=== PATIENT | female | born 1975 | race Caucasian/White ===

== ENCOUNTER 2016-06-09 12:38 | Emergency (ER) | payer BC, OTHER ==
[~2016-06-09] VITALS: Ht 162.6 cm; Wt 79.0 kg
[~2016-06-09 12:38] MED LIST: INDERAL
[2016-06-09 12:44] VITALS: BP 135/84; PULSE 70; RESP 20; TEMP 98.3; O2SAT 100
[2016-06-09] MEDS ORDERED: SODIUM CHLOR 0.9% 1000 ML INJ 1,000 ML IV ONE (13:30)
[2016-06-09] MEDS ORDERED: METOCLOPRAMIDE INJ 10 MG in SODIUM CHLORIDE 0.9% INJ 50 ML IV ONE (13:30)
--- NOTE | 2016-06-09 13:36 | PD ---
HPI Chief Complaint: Headache Time Seen by Provider: 13:14 Travel History International Travel<30 days: No Contact w/Intl Traveler<30days: No Traveled to known affect area: No History of Present Illness HPI 40yo F with PMH of migraine presents to the ED with headache for 6 days. Headache is midline, parietal to occipital and throbbing, constant. Feels like her usual migraine headache. +Nausea and NBNB vomiting. +Photophobia. Pt also with decreased sensation in right arm for 4 days. States that this is new and she usually does not get this with her headache. Denies any trauma, fever , visual changes, chest pain, sob, abdominal pain, weakness. Pt went to urgent care today and was sent here for evaluation. PFSH Past Medical History Migraines: Yes ?: Unknown LMP: a week ago Ectopic : Yes Tubal Ligation: Yes Past Surgical History Appendectomy: Yes Cholecystectomy: Yes Social History Alcohol Use: Yes (SOCIALLY) Tobacco Use: No Substance Use: No Allergies-Medications (Allergen,Severity, Reaction): Coded Allergies: No Known Allergies (Verified , 06/09/16) Reported Meds & Prescriptions Reported Meds & Active Scripts Active Acetaminophen Extra Strength (Acetaminophen) 500 Mg Tab 500 Mg PO Q6H PRN Zofran Odt (Ondansetron Odt) 4 Mg Tab 4 Mg SL Q6HR PRN Review of Systems Except as stated in HPI: all other systems reviewed are Neg Physical Exam Narrative GENERAL: 40yo F in mild distress. SKIN: Warm and dry. HEAD: Atraumatic. Normocephalic. EYES: Pupils equal and round. EOMI. No scleral icterus. No injection or drainage. ENT: No nasal bleeding or discharge. Mucous membranes pink and moist. NECK: Trachea midline. No JVD. CARDIOVASCULAR: Regular rate and rhythm. No murmur appreciated. RESPIRATORY: No accessory muscle use. Clear to auscultation. Breath sounds equal bilaterally. GASTROINTESTINAL: Abdomen soft, non-tender, nondistended. Hepatic and splenic margins not palpable. MUSCULOSKELETAL: No obvious deformities. No clubbing. No cyanosis. No edema. NEUROLOGICAL: Awake and alert. No obvious cranial nerve deficits. Motor grossly within normal limits. Normal speech. PSYCHIATRIC: Appropriate mood and affect; insight and judgment normal. Data Data Last Documented VS Vital Signs Date Time Temp Pulse Resp B/P Pulse Ox O2 Delivery O2 Flow Rate FiO2 06/09/16 15:41 88 20 131/64 95 06/09/16 12:[address] Brain W/O Iv Contrast(Rout) (06/09/16 ) Complete Blood Count With Diff (06/09/16 13:23) Basic Metabolic Panel (Bmp) (06/09/16 13:23) Magnesium (Mg) (06/09/16 13:23) Prothrombin Time / Inr (Pt) (06/09/16 13:23) Act Partial Throm Time (Ptt) (06/09/16 13:23) Metoclopramide Inj (Reglan Inj) (06/09/16 13:30) Sodium Chlor 0.9% 1000 Ml Inj (Ns 1000 M (06/09/16 13:30) Ketorolac Inj (Toradol Inj) (06/09/16 14:45) Prochlorperazine Inj (Compazine Inj) (06/09/16 15:30) Sumatriptan Inj (Imitrex Inj) (06/09/16 15:30) Diphenhydramine Inj (Benadryl Inj) (06/09/16 15:30) Hydromorphone Pf Inj (Dilaudid Pf Inj) (06/09/16 15:30) Pantoprazole Inj (Protonix Inj) (06/09/16 16:15) Labs Laboratory Tests Test 06/09/16 06/09/16 13:50 14:45 White Blood Count 8.5 TH/MM3 Red Blood Count 4.66 MIL/MM3 Hemoglobin 14.2 GM/DL Hematocrit 41.1 % Mean Corpuscular Volume 88.3 FL Mean Corpuscular Hemoglobin 30.5 PG Mean Corpuscular Hemoglobin 34.5 % Concent Red Cell Distribution Width 12.7 % Platelet Count 264 TH/MM3 Mean Platelet Volume 8.8 FL Neutrophils (%) (Auto) 65.0 % Lymphocytes (%) (Auto) 24.7 % Monocytes (%) (Auto) 6.0 % Eosinophils (%) (Auto) 2.7 % Basophils (%) (Auto) 1.6 % Neutrophils # (Auto) 5.6 TH/MM3 Lymphocytes # (Auto) 2.1 TH/MM3 Monocytes # (Auto) 0.5 TH/MM3 Eosinophils # (Auto) 0.2 TH/MM3 Basophils # (Auto) 0.1 TH/MM3 CBC Comment DIFF FINAL Differential Comment Prothrombin Time 11.4 SEC Prothromb Time International 1.0 RATIO Ratio Activated Partial 25.1 SEC Thromboplast Time Sodium Level 141 MEQ/L Potassium Level 3.8 MEQ/L Chloride Level 106 MEQ/L Carbon Dioxide Level 27.2 MEQ/L Anion Gap 8 MEQ/L Blood Urea Nitrogen 8 MG/DL Creatinine 0.87 MG/DL Estimat Glomerular Filtration 72 ML/MIN Rate Random Glucose 79 MG/DL Calcium Level 8.4 MG/DL Magnesium Level 2.3 MG/DL MDM Medical Decision Making Medical Screen Exam Complete: Yes Emergency Medical Condition: Yes Interpretation(s) Last Impressions Head CT 06/09/16 0000 Signed Impressions: Service Date/Time: Thursday, June 09, 2016 14:06 - CONCLUSION: Negative noncontrast head CT. Sanjay Abbott MD Differential Diagnosis Migraine headache vs. SAH vs. cervical radiculopathy Narrative Course 40yo F presents to the ED with her usual migraine headache for 6 days. However, she is having decreased sensation in her right arm. She describes it as a feeling as if a turnique is on her arm and she feels decreased sensation from proximal humerus down. CT brain showed negative noncontrast head CT. Pt with right trapezius ttp and right paraspinal ttp now. Pt reevaluated after reglan, toradol and IVF NS and states headache is still there. I wanted to give her sumatriptan but pt states she cannot take that. Pt states the only thing that helps with her headache is dilaudid or demeral and phenergan. Pt reevaluated at bedside and states her headache has improved after dilaudid. Pt is now complaining of feeling of indigestion. Protonix ordered. Abdomen is soft, NT/ND. Pt is refusing a lumbar puncture to r/o SAH. Pt reevaluated at bedside and states her headache returned but she does not want lumbar puncture or any more work up at this time and just wants to go home. Pt is signing out AMA. She is requesting stronger pain medication to go home with. AMA: The risks of leaving against medical advice without further evaluation treatment were discussed with the patient. These risks include cardiac dysfunction, cardiac dysrhythmia, possible heart attack, possible stroke or . The patient indicated understanding of these risks and appeared to have the capacity to make this decision. Diagnosis Primary Impression: Migraine headache Qualified Code: G43.011 - Intractable migraine without aura and with status migrainosus Patient Instructions: General Instructions Departure Forms: Tests/Procedures Additional Instructions: Please follow up with your neurologist or return to the ED if you have worsening symptoms or change your mind. Med/Other Pt SpecificInfo: Prescription(s) given Scripts Acetaminophen (Acetaminophen Extra Strength)500 Mg Ryt295 Mg PO Q6H PRN (PAIN SCALE 1 TO 4) #20 TAB Ref 0 Prov:Norah Clement DO 06/09/16 Ondansetron Odt (Zofran Odt)4 Mg Tab4 Mg SL Q6HR PRN (Nausea/Vomiting) #7 TAB Ref 0 Prov:Norah Clement DO 06/09/16 Disposition: 01 DISCHARGE HOME Condition: Stable Norah Clement DO Jun 09, 2016 13:36
[2016-06-09 14:10] LABS: AUTOMATED NEUTROPHIL # 5.6 TH/MM3 (1.8-7.7); BASOPHIL # 0.1 TH/MM3 (0-0.2); BASOPHIL % 1.6 % (0.0-2.0); EOSINOPHIL # 0.2 TH/MM3 (0-0.4); EOSINOPHIL % 2.7 % (0.0-4.0); HEMATOCRIT 41.1 % (35.0-46.0); HEMO FLAGS DIFF FINAL; LYMPH % 24.7 % (9.0-44.0); LYMPHOCYTE # 2.1 TH/MM3 (1.0-4.8); MEAN CELL VOLUME 88.3 FL (80.0-100.0); MEAN CORPUSCULAR HEMOGLOBIN 30.5 PG (27.0-34.0); MEAN CORPUSCULAR HGB CONC 34.5 % (32.0-36.0); PLATELET COUNT 264 TH/MM3 (150-450); RED BLOOD COUNT 4.66 MIL/MM3 (4.00-5.30); RED CELL DISTRIBUTION WIDTH 12.7 % (11.6-17.2); WHITE BLOOD COUNT 8.5 TH/MM3 (4.0-11.0)
--- NOTE | 2016-06-09 14:31 | RADHPO ---
EXAM DATE/TIME: 06/09/2016 14:06 [facility] COMPARISON: No previous studies available for comparison. INDICATIONS : Cephaliga 6 days. RADIATION DOSE: 55.20 CTDIvol (mGy) MEDICAL HISTORY : None SURGICAL HISTORY : None. ENCOUNTER: Initial ACUITY: 1 day PAIN SCALE: 5/10 LOCATION: cranial TECHNIQUE: Multiple contiguous axial images were obtained of the head. Using automated exposure control and adj ustment of the mA and/or kV according to patient size, radiation dose was kept as low as reasonably a chievable to obtain optimal diagnostic quality images. FINDINGS: CEREBRUM: The ventricles are normal for age. No evidence of midline shift, mass lesion, hemorrhage or acute in farction. No extra-axial fluid collections are seen. POSTERIOR FOSSA: The cerebellum and brainstem are intact. The 4th ventricle is midline. The cerebellopontine angle i s unremarkable. EXTRACRANIAL: The visualized portion of the orbits is intact. SKULL: The calvaria is intact. No evidence of skull fracture. CONCLUSION: Negative noncontrast head CT. Sanjay Abbott MD on June 09, 2016 at 14:29 Board Certified Radiologist. This report was verified electronically.
[2016-06-09] MEDS ORDERED: KETOROLAC TROMETHAMINE 30 MG/ML (IVP) VIAL IV PUSH ONE (14:45)
[2016-06-09 14:47] VITALS: BP 127/87; PULSE 60; RESP 18; O2SAT 98
[2016-06-09 15:04] LABS: POTASSIUM 3.8 MEQ/L (3.5-5.1)
[2016-06-09 15:07] LABS: BICARBONATE 27.2 MEQ/L (21.0-32.0); MAGNESIUM 2.3 MG/DL (1.5-2.5)
[2016-06-09 15:11] LABS: APTT (PATIENT) 25.1 SEC (24.3-30.1); PROTHROMBIN TIME - PATIENT 11.4 SEC (9.8-11.6)
[2016-06-09] MEDS ORDERED: HYDROmorphone HCL PF 1 MG/ML VIAL IV PUSH ONE (15:30)
[2016-06-09] MEDS ORDERED: SUMAtriptan INJ 6 MG/0.5 ML VIAL SQ ONE (15:30)
[2016-06-09] MEDS ORDERED: PROCHLORPERAZINE INJ 10 MG/2 ML VIAL IVS ONE (15:30)
[2016-06-09] MEDS ORDERED: diphenhydrAMINE HCL 50 MG/ML VIAL IV PUSH ONE (15:30)
[2016-06-09 15:41] VITALS: BP 131/64; PULSE 88; RESP 20; O2SAT 95
[2016-06-09] MEDS ORDERED: PANTOPRAZOLE SODIUM 40 MG VIAL IV PUSH ONE (16:15)
[2016-06-09] MEDS ORDERED: ACET500T36 PO (17:18)
[2016-06-09] MEDS ORDERED: ZOFR4TAB3 SL (17:18)
[2016-10-07] MEDS ORDERED: AMBI10TA PO (14:39)
[2016-10-07] MEDS ORDERED: TRAM50TA PO (14:41)
[2016-10-07] MEDS ORDERED: ZOFR4TAB PO (14:41)
== END 2016-06-09 17:45 | disposition home or self-care (01) ==
LOC: PHED 12:38
DX: G43.011 Migraine without aura, intractable, with status migrainosus (principal); R11.2 Nausea with vomiting, unspecified
CPT/HCPCS: 70450; 80048; 83735; 85025; 85610; 85730; 96361; 96365; 96375; 99284; C9113; J1170; J1885; J2765; J7030

== ENCOUNTER → 2016-10-07 | Outpatient (CLI) | payer BC ==
[~2016-10-07] MED LIST changes: +ACET500T36 PO; +AMBI10TA PO; -INDERAL; +TRAM50TA PO; +ZOFR4TAB PO; +ZOFR4TAB3 SL
== END ==
LOC: CPRE 14:16
PROVIDERS: ATTEND Obstetrics & Gynecology
DX: Z01.812 Encounter for preprocedural laboratory examination (principal); D25.9 Leiomyoma of uterus, unspecified

== ENCOUNTER 2016-10-09 11:59 | Observation (INO) | payer BC ==
[~2016-10-09] VITALS: Ht 162.6 cm; Wt 79.4 kg
[~2016-10-09 11:59] MED LIST changes: -ACET500T36 PO; -ZOFR4TAB3 SL
[2016-10-09] MEDS ORDERED: LACTATED RINGER'S 1000 ML INJ 1,000 ML IV ONE (12:00)
[2016-10-09] MEDS ORDERED: ONDANSETRON HCL 4 MG/2 ML VIAL IV PUSH ONE ×2 (12:00→12:45)
[2016-10-09] MEDS ORDERED: PROPOFOL 200 MG/20 ML AMP IV ONE (12:00)
[2016-10-09 12:39] VITALS: BP 120/66; PULSE 62; RESP 16; TEMP 99.2; O2SAT 100
[2016-10-09] MEDS ORDERED: METOPROLOL TARTRATE 25 MG TAB PO PRN (12:45)
[2016-10-09] MEDS ORDERED: LACTATED RINGER'S 1000 ML IV PRN (12:45)
[2016-10-09] MEDS ORDERED: POVIDONE IODINE 5% (ANTISEPSIS KIT) 4 APPLICATIONS EACH NARE PRN (12:45)
[2016-10-09] MEDS ORDERED: SODIUM CHLORID 0.9% 500 ML IV PRN (12:45)
[2016-10-09] MEDS ORDERED: INSULIN HUMAN REGULAR 1,000 UNITS/10 ML VIAL SQ PRN (12:45)
[2016-10-09] MEDS ORDERED: CHLORHEXIDINE GLUCONATE 2 % 1 PACK (2 CLOTHS) TOPICAL PRN (12:45)
[2016-10-09] MEDS ORDERED: MIDAZOLAM HCL 2 MG/2 ML VIAL IV ONE (13:00)
[2016-10-09] MEDS ORDERED: ceFAZolin 1,000 MG/NS 100 ML IV ONE ×2 (13:00)
[2016-10-09] MEDS ORDERED: VASOPRESSIN INJ 20 UNITS/ML VIAL ONE (13:19)
[2016-10-09] MEDS ORDERED: ACETAMINOPHEN 1000 MG/100 ML VIAL IV ONE (13:35)
[2016-10-09] MEDS ORDERED: fentaNYL CITRATE 250 MCG/5 ML AMP ONE (13:36)
[2016-10-09] MEDS ORDERED: MIDAZOLAM HCL 2 MG/2 ML VIAL ONE (13:36)
[2016-10-09] MEDS ORDERED: SUGAMMADEX SODIUM 200 MG/2 ML VIAL IV PUSH ONE ×2 (15:32)
[2016-10-09] MEDS ORDERED: *morphine SULFATE 8 MG/ML PERIprocedure ONLY ONE ×3 (15:58→16:21)
[2016-10-09] MEDS ORDERED: MORPHINE SULFATE 30 MG/30 ML PCA ONE (16:11)
[2016-10-09] MEDS ORDERED: KETOROLAC TROMETHAMINE 30 MG/ML (IVP) VIAL ONE (16:12)
[2016-10-09] MEDS: MORPHINE SULFATE 30 MG/30 ML PCA IV SCH ×2 (17:00→23:44)
[2016-10-09] MEDS: DEXT 5%-NACL 0.45% 1000 ML INJ 1,000 ML IV SCH ×2 (17:00→23:15)
[2016-10-09] MEDS ORDERED: NALOXONE HCL 0.4 MG/ML AMP IV PRN (17:00)
[2016-10-09] MEDS ORDERED: diphenhydrAMINE HCL 50 MG/ML VIAL IV PUSH PRN (17:00)
[2016-10-09] MEDS ORDERED: oxyCODONE/ACETAMINOPHEN 5 MG/325 MG TAB PO PRN (17:15)
[2016-10-09] MEDS ORDERED: KETOROLAC TROMETHAMINE 30 MG/ML (IVP) VIAL IV PUSH ONE (17:15)
[2016-10-09] MEDS ORDERED: *HYDROmorphone PF 1 MG VIAL PERIprocedural Use ONLY ONE (17:15)
[2016-10-09 18:00] VITALS: BP 102/55; PULSE 65; RESP 16; TEMP 98.1; O2SAT 98
[2016-10-09 20:00] VITALS: BP 104/53; PULSE 65; RESP 16; TEMP 97.6; O2SAT 98
[2016-10-09] MEDS: ONDANSETRON HCL 4 MG/2 ML VIAL IV PUSH PRN (20:04)
[2016-10-09] MEDS: PCA - TOTAL MG MORPHINE DELIVERED PER SHIFT SCH (22:30)
[2016-10-10] VITALS (7 sets, daily range): BP systolic 95–108; BP diastolic 56–74; PULSE 62–83; RESP 16; TEMP 96.5–97.9; O2SAT 94–100
[2016-10-10] MEDS: ONDANSETRON HCL 4 MG/2 ML VIAL IV PUSH PRN ×3 (00:16→10:03)
[2016-10-10] MEDS: PCA - TOTAL MG MORPHINE DELIVERED PER SHIFT SCH (06:15)
[2016-10-10 08:05] LABS: HEMATOCRIT 38.8 % (35.0-46.0); REVIEW FLAG FINAL
--- NOTE | 2016-10-11 15:26 | MP ---
cc: HERNÁN CRUZ DATE OF SURGERY: 10/09/2016 PREOPERATIVE DIAGNOSIS: Leiomyoma uteri, menorrhagia. POSTOPERATIVE DIAGNOSIS: Leiomyoma uteri, menorrhagia. OPERATION: Laparoscopic assisted supracervical hysterectomy. SURGEON: Hernán Cruz MD ANESTHESIA: General. ESTIMATED BLOOD LOSS: 50 cc. COMPLICATIONS: None. FINDINGS: The patient had a uterus that was slightly enlarged. There was a couple small intramural fibroids on the left side. The left tube, the distal end was absent from her prior surgery. The right tube were unremarkable. The left ovary was unremarkable. The upper abdominal organs were normal as far as could be visualized. DESCRIPTION OF PROCEDURE: The patient was brought into the operating room and following general anesthesia was placed in the dorsolithotomy position. Her vagina, abdomen and perineum were prepped and draped. The HUMI catheter was placed into the uterus and the Mares catheter into the bladder. A 1 cm subumbilical skin incision was made. The Veress needle was inserted and three liters of Co2 was infused into the abdomen. The Veress needled was then removed and the laparoscope was placed without difficult. The second and third puncture site were created under direct visualization. The findings were as noted above. The Harmonic scalp was used to clamp, cut and seal the upper broad ligament and round ligaments. The bladder peritoneum was incised and the bladder was sharply dissected off the anterior cervix. The uterine vessels are skeletonized and then clamped, cut and sealed with the harmonic scalp. The cervix was then transected across the upper portion with the harmonic scalpel and the top of the cervix, endocervical canal were cauterized and maintained feature hemostasis, the uterus was morcellated and removed. The pelvis was copiously irrigated and good hemostasis was noted at all sites. Photos were taken. All instruments were then removed and the Co2 gas is allowed to escape. The incisions were then closed with subcuticular 4-0 Vicryl stitch. The patient did not have any problems. At the end of the procedure all counts were correct including urine draining from the Mares catheter. Hernán Cruz MD [facility]/ /3:54 PM /2:34 PM
== END 2016-10-10 12:33 | disposition home or self-care (01) ==
LOC: HSDC 11:59 → HOCB 18:05
PROVIDERS: ADMIT Obstetrics & Gynecology; ATTEND Obstetrics & Gynecology
DX: N92.0 Excessive and frequent menstruation with regular cycle (principal); N80.0 Endometriosis of uterus; D25.9 Leiomyoma of uterus, unspecified; Z87.891 Personal history of nicotine dependence
CPT/HCPCS: 00840; 58542; 85014; 85018; 86850; 86900; 86901; 88307; G0378; J0131; J0690; J1170; J2250; J2270; J2405; J3010; J7120; J1885

== ENCOUNTER 2016-12-04 10:39 | Emergency (ER) | payer BC ==
[~2016-12-04] VITALS: Ht 162.6 cm; Wt 76.3 kg
[2016-12-04 10:48] VITALS: BP 128/71; PULSE 64; RESP 16; TEMP 98.3; O2SAT 100
[2016-12-04] MEDS ORDERED: KETO10 PO (11:00)
[2016-12-04] MEDS ORDERED: SODIUM CHLOR 0.9% 1000 ML INJ 1,000 ML IV ONE (11:28)
[2016-12-04] MEDS ORDERED: diphenhydrAMINE HCL 50 MG/ML VIAL IVP ONE (11:30)
[2016-12-04] MEDS ORDERED: KETOROLAC TROMETHAMINE 30 MG/ML (IVP) VIAL IVP ONE (11:30)
[2016-12-04] MEDS ORDERED: SODIUM CHLORIDE 0.9% FLUSH 10 ML FLUSH IVF PRN (11:30)
[2016-12-04] MEDS ORDERED: PROCHLORPERAZINE INJ 10 MG/2 ML VIAL IVP ONE (11:30)
[2016-12-04] MEDS ORDERED: methylPREDNISolone SOD SUCC 125 MG/2 ML VIAL IV PUSH ONE (11:30)
[2016-12-04 12:03] VITALS: O2SAT 100
[2016-12-04 12:38] VITALS: BP 124/65; PULSE 70; RESP 16; O2SAT 100
[2016-12-04] MEDS ORDERED: HYDROmorphone HCL PF 1 MG/ML VIAL IV PUSH ONE (13:15)
--- NOTE | 2016-12-04 13:27 | PD ---
HPI Chief Complaint: Headache Time Seen by Provider: 11:11 Travel History International Travel<30 days: No Contact w/Intl Traveler<30days: No Traveled to known affect area: No History of Present Illness HPI So 40 year-old woman with a history of severe migraines presents to the emergency department complaining of headache is been ongoing for several days. States it started about 14 days ago. She typically gets 2-3 severe headaches a month but has more frequent and less severe headaches as well. She typically gets bad headaches in November. This was started for 2 days ago and is been persistent. Stigmata multiple medications at home including tramadol, Toradol, and some [id number] migraine medicine. Chest and took some Migranal nasal spray. She's had nausea, and photosensitivity, but no other neurologic symptoms. She saw Dr. Brown, her neurologist yesterday who started her on steroids. History Past Medical History Narrative Medical Migraines History of melanoma in 2008 Tetanus Vaccination: Unknown Influenza Vaccination: No Social History Alcohol Use: Yes (SOCIALLY) Tobacco Use: No Allergies-Medications (Allergen,Severity, Reaction): Coded Allergies: No Known Allergies (Verified , 10/09/16) Reported Meds & Prescriptions Reported Meds & Active Scripts Active Reported Ketorolac (Ketorolac Tromethamine) 10 Mg Tab 10 Mg PO Q6HR PRN Zofran (Ondansetron HCl) 4 Mg Tab 4 Mg PO Q6HR PRN Tramadol (Tramadol HCl) 50 Mg Tab 50 Mg PO Q4H PRN Ambien (Zolpidem Tartrate) 10 Mg Tab 10 Mg PO HS PRN Review of Systems Except as stated in HPI: all other systems reviewed are Neg Physical Exam Narrative GENERAL: Well-appearing 40 year-old woman, appears uncomfortable but nontoxic. Laying in bed with sunglasses on. SKIN: Focused skin assessment warm/dry. HEAD: Atraumatic. Normocephalic. EYES: Pupils equal and round. No scleral icterus. No injection or drainage. ENT: No nasal bleeding or discharge. Mucous membranes pink and moist. NECK: Trachea midline. No JVD. CARDIOVASCULAR: Regular rate and rhythm. No murmur appreciated. RESPIRATORY: No accessory muscle use. Clear to auscultation. Breath sounds equal bilaterally. GASTROINTESTINAL: Abdomen soft, non-tender, nondistended. Hepatic and splenic margins not palpable. MUSCULOSKELETAL: No obvious deformities. NEUROLOGICAL: Awake and alert. No obvious cranial nerve deficits. Motor grossly within normal limits. Normal speech. Data Data Last Documented VS Vital Signs Date Time Temp Pulse Resp B/P (MAP) Pulse Ox O2 Delivery O2 Flow Rate FiO2 12/04/16 12:38 70 16 124/65 (84) 100 12/04/16 10:48 98.3 Orders Orders Ecg Monitoring (12/04/16 11:28) Iv Access Insert/Monitor (12/04/16 11:28) Oximetry (12/04/16 11:28) Sodium Chloride 0.9% Flush (Ns Flush) (12/04/16 11:30) Ketorolac Inj (Toradol Inj) (12/04/16 11:30) Prochlorperazine Inj (Compazine Inj) (12/04/16 11:30) Diphenhydramine Inj (Benadryl Inj) (12/04/16 11:30) Sodium Chlor 0.9% 1000 Ml Inj (Ns 1000 M (12/04/16 11:28) Methylprednisolone So Succ Inj (Solumedr (12/04/16 11:30) Valproate Inj (Depacon Inj) (12/04/16 14:00) Hydromorphone Pf Inj (Dilaudid Pf Inj) (12/04/16 13:15) MDM Medical Decision Making Medical Screen Exam Complete: Yes Emergency Medical Condition: Yes Differential Diagnosis Migraines, cephalgia, tumor, other Narrative Course Medical decision making This is a 40 year-old woman history of severe migraines here with the same. Unrelieved with initial medications including Depakote, Toradol, Compazine, steroids. I spoke with Dr. Brown, is okay with us trying a dose of opiates, recommends admission. Patient reluctant to stay, declining admission. We'll recommend close outpatient follow-up. Diagnosis Primary Impression: Migraine headache Additional Instructions: Follow-up with your urologist in the next one to 2 days. Return to the emergency department for any new or worsening symptoms. Med/Other Pt SpecificInfo: No Change to Meds Disposition: 01 DISCHARGE HOME Condition: Stable Parviz Murray MD Dec 04, 2016 13:27
[2016-12-04] MEDS ORDERED: VALPROATE INJ 500 MG in SODIUM CHLORIDE 0.9% INJ 100 ML IV SCH (14:00)
== END 2016-12-04 14:35 | disposition home or self-care (01) ==
LOC: PHED 10:39
DX: G43.909 Migraine, unspecified, not intractable, without status migrainosus (principal); Z85.820 Personal history of malignant melanoma of skin
CPT/HCPCS: 96361; 96374; 96375; 99284; J0780; J1170; J1200; J1885; J2930; J7030

== ENCOUNTER 2017-04-23 17:23 | Emergency (ER) | payer BC ==
[~2017-04-23 17:23] MED LIST changes: +KETO10 PO
== END 2017-04-23 18:17 | disposition left against medical advice (07) ==
LOC: PHED 17:23
DX: R51 Headache (principal)
CPT/HCPCS: 99281